=== PATIENT | female | born 1975 | race Caucasian/White ===

== ENCOUNTER 2020-03-19 15:11 | Emergency (ER) | payer OTHER ==
[~2020-03-19] VITALS: Ht 160 cm; Wt 59.0 kg
[2020-03-19 15:19] VITALS: BP 90/51
--- NOTE | 2020-03-19 15:24 | NUR ---
44 Y/O FEMALE BIB [facility] AFTER BEING FOUND IN HER CAR WITH ALOC. PT STATES SHE TOOK CLONIDINE AND A NARCOTIC PAIN RELIEVER, FELT LIKE SHE WAS GOING TO FALL ASLEEP AND PULLED OVER. 2 MG NARCAN GIVEN IN EN ROUTE. DENIES SI. AAOX4. RESP EVEN AND UNLABORED. LUNG SOUNDS CLEAR. CAP REFILL <3. PERRLA 3MM. NO PMH NKA
--- NOTE | 2020-03-19 15:46 | NUR ---
PT IS RESTING IN BED, AWAKE AND ALERT. STATED SHE FELTY VERY THIRSTY AND WANTED SOME ICE CHIPS. VSS. RESP EVEN AND UNLABORED
[2020-03-19 17:04] VITALS: BP 114/71
--- NOTE | 2020-03-19 17:05 | NUR ---
Patient discharged with v/s stable. Written and verbal after care instructions given and explained. Patient alert, oriented and verbalized understanding of instructions. Ambulatory with steady gait. All questions addressed prior to discharge. ID band removed. Patient advised to follow up with PMD. Rx of NARCAN given. Patient educated on indication of medication including possible reaction and side effects. Opportunity to ask questions provided and answered.
== END 2020-03-19 17:05 | disposition home or self-care (01) ==
LOC: MED 15:11
DX: T40.2X1A Poisoning by other opioids, accidental (unintentional), initial encounter (principal); R41.82 Altered mental status, unspecified; F19.10 Other psychoactive substance abuse, uncomplicated; Y93.89 Activity, other specified; Y92.89 Other specified places as the place of occurrence of the external cause; Y99.8 Other external cause status
CPT/HCPCS: 99283